=== PATIENT | female | born 1935 | race Caucasian/White ===

== ENCOUNTER → 2019-02-26 | Outpatient (CLI) | payer OTHER ==
[~2019-02-26] MED LIST: MOTRIN; VICODIN 5-5001 EACH
--- NOTE | 2019-03-01 20:54 | MCT ---
[facility] [address] [place] [address] METHACHOLINE CHALLENGE TEST Name: BOBBI ABRAMS Room #: REG [facility] Adilson#: [id number] Admission: 02/26/19 Attend Phys: Jer Cervantes MD Discharge: Date of : 37 Report #: [id number] THIS REPORT FOR: //name// Height: in Exam Date: Weight: lbs BTPS: X >> PRE BRONCHODILATOR: PREDICTED BEST %PRED FORCED VITAL CAPACITY (FRC) L LPM % FORCED EXP VOL/SEC (FEV1) L FEV/FVC % MAX MID-EXP FLOW (FEF 25-75) L/SEC L/SEC % PEAK EXP FLOW RATE (FEF MAX) L/MIN L/MIN MED-VC RATIO (FEF 50/FEF 50) .09 Baseline: Phenol Saline Level 1: 0.025 mg/ml BEST %PRED %CHANGE BEST %PRED %CHANGE FVC L % % FVC L % % FEV1 L % % FEV1 L % % Level 2: 0.25 mg/ml Level 3: 2.5 mg/ml BEST %PRED %CHANGE BEST %PRED %CHANGE FVC L % % FVC L % % FEV1 L % % FEV1 L % % . Level 4: 10 mg/ml Level 5: 25 mg/ml BEST %PRED %CHANGE BEST %PRED %CHANGE FVC L % % FVC L % % FEV1 L % % FEV1 L % % Post Bronchodilator: 1st Treatment Post Bronchodilator: 2nd Treatment BEST %PRED %CHANGE BEST %PRED %CHANGE FVC L % % FVC L % % FEV1 L % % FEV1 L % % Post Bronchodilator: 3rd Treatment BEST %PRED %CHANGE FVC L % % FEV1 L % % >> INTERPRETATION: [facility] [address] [place] [address] METHACHOLINE CHALLENGE TEST Name: MARIMAR GURROLABOBBI A Room #: [facility] LaureAkil#: [id number] Admission: 02/26/19 Attend Phys: Jer Cervantes MD Discharge: Date of : 37 Report #: [id number] CC: Elmo Cervantes DATE OF SERVICE: 03/01/2019 METHACHOLINE CHALLENGE TEST Methacholine study was completed in routine fashion with increasing doses of methacholine for the bronchodilator challenge. FEV1 was initially 1.55 liters at baseline; however, with increasing doses of methacholine, she did significantly drop to 1.19 liters, which is a 23% decline. Post-bronchodilator therapy was positive response. IMPRESSION: This is a positive methacholine challenge test. Please correlate clinically. <ELECTRONICALLY SIGNED> By: Silviano Henriquez MD 03/01/19 2054 Silviano Henriquez MD /nt
== END ==
LOC: PUL 10:39
DX: R06.09 Other forms of dyspnea (principal)

== ENCOUNTER → 2019-04-24 | Outpatient (CLI) | payer OTHER | LOC: SJCVCIMAG 13:35 | DX: I34.0 Nonrheumatic mitral (valve) insufficiency (principal); I10 Essential (primary) hypertension; E78.00 Pure hypercholesterolemia, unspecified; E78.5 Hyperlipidemia, unspecified; G25.81 Restless legs syndrome; Z86.73 Personal history of transient ischemic attack (TIA), and cerebral infarction without residual deficits; Z79.899 Other long term (current) drug therapy ==

== ENCOUNTER → 2019-08-24 | Outpatient (CLI) | payer OTHER | LOC: MRI 09:42 | PROVIDERS: ATTEND Neurological Surgery | DX: M51.27 Other intervertebral disc displacement, lumbosacral region (principal); M48.07 Spinal stenosis, lumbosacral region; M51.36 Other intervertebral disc degeneration, lumbar region; M41.86 Other forms of scoliosis, lumbar region; M47.816 Spondylosis without myelopathy or radiculopathy, lumbar region ==